=== PATIENT | male | born 1970 | race African-American/Black ===

== ENCOUNTER → 2016-12-04 | Outpatient (CLI) | payer OTHER ==
--- NOTE | ~2016-12-04 | CR63 ---
[facility] A Service of [facility] & [facility] RADIOLOGY TEXT RESULTS PATIENT: REAGAN CAAL LOCATION: [facility] : 72 UNIT #: [id number] AGE: [address]: TONY GEIGER SEX: M ORDER DR: [id number] [facility] [address] [place], [place] [address] [id number] O MR#: [id number] Acc #: [id number] NAME: REAGAN CAAL : 1970 SEX: M STUDY DATE/TIME: 12/04/2016 10:56 UNIT: [facility] ROOM: STUDY DESCRIPTION: CR Chest 2 View Attending Physician: Maxine Geiger A.P.R.N. Referring Physician: Maxine Geiger A.P.R.N. Ordering Physician: Physician Non-Staff Primary Care Physician: Maxine Geiger A.P.R.N. MEDICAL IMAGING REPORT This report is preliminary unless electronic signature is present EXAM Chest 12/04/2016, [facility]. HISTORY 46-year-old male patient, cough, sore throat symptoms x1 month. The patient also gives history of high blood pressure. COMPARISON None. FINDINGS PA and lateral chest views show normal cardiac size and configuration. Hilar structures and mediastinal contours are preserved. Bilateral lungs are expanded and clear. Costophrenic angles are clear. Bony thorax is normal. IMPRESSION Negative chest. Dictated by... Evangelista Abrams M.D. THIS IS AN ELECTRONICALLY VERIFIED REPORT Evangelista Abrams M.D. at 12/04/2016 3:08 PM PLACIDO/[email or web address] TD: 12/04/2016 14:54 JOB #: [id number] MEDICAL IMAGING REPORT Page 1 of 1 COPY
== END | disposition home or self-care (01) ==
LOC: CRAD 10:33
DX: I10 Essential (primary) hypertension (principal)
CPT/HCPCS: 71020